=== PATIENT | female | born 1945 | race Caucasian/White ===

== ENCOUNTER 2017-07-08 21:50 | Emergency (ER) | payer OTHER ==
[~2017-07-08] VITALS: Ht 170.2 cm; Wt 63.5 kg
[2017-07-09] MEDS ORDERED: ONDANSETRON HCL 4 MG/2 ML VIAL IV ONE (02:30)
[2017-07-09] MEDS ORDERED: HYDROmorphone HCL 2 MG/ML VL IV ONE (02:30)
[2017-07-09] MEDS ORDERED: diphenhdrAMINE HCL 50 MG/1 ML VL ONE (02:46)
[2017-07-09] MEDS ORDERED: methylPREDNISolone SOD SUCC 125 MG/2 ML VL ONE (02:47)
[2017-07-09] MEDS ORDERED: NALOXONE HCL 1MG/ML 2ML SYRINGE ONE (02:47)
[2017-07-09] MEDS ORDERED: NALOXONE HCL 1MG/ML 2ML SYRINGE IV ONE (03:00)
[2017-07-09] MEDS ORDERED: diphenhdrAMINE HCL 50 MG/1 ML VL IV ONE (03:00)
[2017-07-09] MEDS ORDERED: methylPREDNISolone SOD SUCC 125 MG/2 ML VL IV ONE (03:00)
[2017-07-09 04:55] VITALS: BP 109/58
== END 2017-07-09 05:56 | disposition short-term general hospital (02) ==
LOC: EDBD 21:50 → ER 21:57
DX: S72.041A Displaced fracture of base of neck of right femur, initial encounter for closed fracture (principal); T50.905A Adverse effect of unspecified drugs, medicaments and biological substances, initial encounter; W01.0XXA Fall on same level from slipping, tripping and stumbling without subsequent striking against object, initial encounter; Y93.89 Activity, other specified; Y92.89 Other specified places as the place of occurrence of the external cause; Y99.8 Other external cause status
CPT/HCPCS: 73502; 93005; 96374; 96375; 99285; J1170; J1200; J2310; J2405; J2930

== ENCOUNTER 2019-11-16 17:25 | Inpatient (IN) | payer OTHER ==
[~2019-11-16] VITALS: Ht 167.6 cm; Wt 59.9 kg
[2019-11-16 18:55] LABS: Basophils # (auto) 0.1 10 ^3/uL (0-0.2); Basophils % (auto) 0.5 % (0.0-2.0); Eosinophils # (auto) 0 10 ^3/uL (0-0.8); Eosinophils % (auto) 0.3 % (0.0-7.0); Hematocrit 50.3 % (36.0-46.0); Lymphocytes # (auto) 1.4 10 ^3/uL (0.4-5.4); Lymphocytes % (auto) 10.4 % (10.0-50.0); Mean Corpuscular Hemoglobin 27.2 pg (28.0-32.0); Mean Corpuscular Hgb Conc. 31.8 g/dL (32.0-36.0); Mean Corpuscular Volume 85.7 fL (80.0-100.0); Monocytes # (auto) 0.9 10 ^3/uL (0-1.3); Monocytes % (auto) 6.9 % (0.0-12.0); Neutrophils # (auto) 10.7 10 ^3/uL (1.6-8.6); Neutrophils % (auto) 81.9 % (37.0-80.0); Nucleated Red Blood Cells % 0.4 %; Platelet Count (auto) 174 10^3/uL (140-450); Red Blood Cells 5.87 10^6/uL (4.0-5.20); Red Cell Distribution Width 18.6 % (11.8-14.3)
[2019-11-16 18:59] LABS: Urine Bacteria FEW /hpf (None Seen); Urine Blood Negative /uL (Negative); Urine Hyaline Cast MANY /lpf (0 - 2); Urine Mucus FEW (None Seen); Urine Specific Gravity 1.019 (1.001-1.035); Urine WBC 3 /hpf (0 - 5)
[2019-11-16 19:04] LABS: INR 1.22 (0.9-1.15); Partial Thromboplastin Time 32.8 sec (23.64-32.05)
[2019-11-16 19:14] LABS: Albumin 2.2 g/dL (3.4-5.0); Anion Gap 6 (5-15); Blood Urea Nitrogen 54 mg/dL (7-18); Carbon Dioxide 28 mmol/L (21-32); Chloride 101 mmol/L (98-107); Glucose 90 mg/dL (74-106); Potassium 4.7 mmol/L (3.5-5.1); Sodium 135 mmol/L (136-145)
[2019-11-16 19:21] LABS: Alanine Aminotransferase 15 U/L (13-56); Alkaline Phosphatase 97 U/L (45-117); Aspartate Aminotransferase 11 U/L (15-37); BUN/Creatinine Ratio 50.5; Bilirubin, Total 1.2 mg/dL (0.2-1.0); Blood Alcohol < 3.0 mg/dL (0-5); GFR African American 65 mL/min; GFR Non-African American 53 mL/min; Total Protein 5.7 g/dL (6.4-8.2)
[2019-11-16] MEDS ORDERED: FUROSEMIDE 40 MG/4 ML VIAL IV ONE (21:00)
[2019-11-16] MEDS ORDERED: cefTRIAXone 1GM/50ML D5W 50 ML IV ONE (21:00)
[2019-11-16] MEDS ORDERED: AZITHROMYCIN 500MG/ 250ML 250 ML IV ONE (21:00)
[2019-11-17] MEDS ORDERED: ACETAMINOPHEN 325 MG TAB PO PRN (06:30)
[2019-11-17] MEDS ORDERED: NITROGLYCERIN 0.4 MG SL TAB SL PRN (06:30)
[2019-11-17] MEDS ORDERED: MORPHINE SULF INJ 2 MG/ML SYRINGE 1ML IV PRN (06:30)
[2019-11-17] MEDS ORDERED: TEMAZEPAM 15 MG CAP PO PRN (06:30)
[2019-11-17] MEDS ORDERED: ONDANSETRON HCL 4 MG/2 ML VIAL IV PRN (06:30)
[2019-11-17] MEDS ORDERED: FUROSEMIDE 20 MG/2 ML VIAL IV SCH (06:53)
[2019-11-17] MEDS: LEVOTHYROXINE SODIUM 25 MCG TAB PO SCH (07:00)
[2019-11-17] MEDS: PANTOPRAZOLE 40 MG TAB PO SCH (10:00)
[2019-11-17] MEDS: METOPROLOL TARTRATE 25 MG TAB PO SCH ×2 (10:00→21:38)
[2019-11-17] MEDS: ASPirin 81 mg TAB PO SCH (10:00)
[2019-11-17] MEDS: LOSARTAN POTASSIUM 25 MG TAB PO SCH (10:00)
[2019-11-17] MEDS ORDERED: levoFLOXacin 500MG 100 ML IV SCH (10:00)
[2019-11-17] MEDS ORDERED: AZITHROMYCIN 500MG/ 250ML 250 ML IV ONE (12:30)
[2019-11-17] MEDS ORDERED: LOSA-39 PO (16:46)
[2019-11-17] MEDS ORDERED: MET25T PO (16:46)
[2019-11-17] MEDS ORDERED: LEVO75TA6 PO (16:46)
[2019-11-17] MEDS ORDERED: BUPR1TAB11 PO (16:46)
[2019-11-17] MEDS ORDERED: SIMV10TA84 PO (16:46)
--- NOTE | 2019-11-17 17:17 | NUR ---
Telemetry admit from ER ESTHELA AGARWAL admitted to Telemetry unit after SBAR received. Patient oriented to LEO, primary RN, unit, room and bed. Turner catheter hung to gravity and draining yellow hazy urine. LW and RW IV patent and locked. Patient now on continuous telemetry monitoring, tele box #84 and telemetry reading on arrival to unit is SINUS RHYTHM 66BPM. Patient placed on bedside oxygen, weighed by bedscale and encouraged to call if they need something. Patient alert to self only and unable to verbalize understanding. Bed alarm on for safety, call light within reach.
--- NOTE | 2019-11-17 17:22 | NUR ---
Swallow Eval Guest Service Supervisor at bed side assessing patient
--- NOTE | 2019-11-17 17:32 | NUR ---
SWALLOW EVALUATED. PATIENT VERY WEAK AND ALOC. PATIENT HAS NO TEETH, NO DENTURES PRESENT. ABLE TO FOLLOW ONE STEP COMMANDS. PATIENT COUGHED ON TRIAL OF THIN LIQUIDS. PATIENT ABLE TO TOLERATE PUREE DIET TEXTURE WITH NECTAR THICKENED LIQUIDS WITH NO OVERT SIGNS OR SYMPTOMS OF ASPIRATION. NURSING NOTIFIED.
[2019-11-17] MEDS ORDERED: LABETALOL HCL 5 MG/ML 4ML SYRINGE IV PRN (18:00)
[2019-11-17] MEDS: FUROSEMIDE 40 MG/4 ML VIAL IV SCH (18:00)
[2019-11-17] MEDS ORDERED: ASPI-498 PO (18:59)
[2019-11-17] MEDS ORDERED: CHOL500023 PO (18:59)
--- NOTE | 2019-11-17 19:00 | NUR ---
PATIENT IS AO X1. DOES NOT ANSWER ANY QUESTIONS EXCEPT FOR WHAT HER NAME IS OTHER THAN THAT SHE MOANS IF ASKED ANYTHING ELSE. BREATHING IS REGULAR ON 2LNC. BED IS LOCKED IN LOWEST SETTING WITH SIDE RAILS UP X2. WILL CONTINUE TO MONITOR.
[2019-11-17] MEDS: ATORVASTATIN 20 MG TAB PO SCH (21:38)
[2019-11-17 22:00] VITALS: BP 106/51
[2019-11-18] VITALS (10 sets, daily range): BP systolic 74–106; BP diastolic 48–64
--- NOTE | 2019-11-18 04:37 | NUR ---
Paged hospitalist for hypotension lowest of 74/52 and highest of 93/53 and heart of 75. Awaiting callback.
[2019-11-18] MEDS ORDERED: ALBUMIN 5% 250 ML IV STA (05:05)
[2019-11-18] MEDS: FUROSEMIDE 40 MG/4 ML VIAL IV SCH ×2 (06:00→18:24)
[2019-11-18] MEDS: LEVOTHYROXINE SODIUM 25 MCG TAB PO SCH (06:35)
[2019-11-18 06:54] LABS: Basophils # (auto) 0 10 ^3/uL (0-0.2); Basophils % (auto) 0.3 % (0.0-2.0); Eosinophils # (auto) 0 10 ^3/uL (0-0.8); Eosinophils % (auto) 0.4 % (0.0-7.0); Hematocrit 48.4 % (36.0-46.0); Hemoglobin 15.7 g/dL (12.2-16.2); Lymphocytes # (auto) 0.9 10 ^3/uL (0.4-5.4); Lymphocytes % (auto) 8.7 % (10.0-50.0); Mean Corpuscular Hemoglobin 27.9 pg (28.0-32.0); Mean Corpuscular Hgb Conc. 32.5 g/dL (32.0-36.0); Mean Corpuscular Volume 85.7 fL (80.0-100.0); Monocytes # (auto) 0.7 10 ^3/uL (0-1.3); Monocytes % (auto) 6.9 % (0.0-12.0); Neutrophils % (auto) 83.7 % (37.0-80.0); Nucleated Red Blood Cells % 0.6 %; Platelet Count (auto) 151 10^3/uL (140-450); Red Blood Cells 5.65 10^6/uL (4.0-5.20); Red Cell Distribution Width 18.3 % (11.8-14.3); White Blood Cell 10.8 10^3/uL (4.4-10.8)
[2019-11-18 07:05] LABS: Albumin 2.1 g/dL (3.4-5.0); Calcium 7.9 mg/dL (8.5-10.1); Potassium 3.4 mmol/L (3.5-5.1)
[2019-11-18 07:10] LABS: BUN/Creatinine Ratio 58.4; Bilirubin, Total 0.9 mg/dL (0.2-1.0); Total Protein 5.2 g/dL (6.4-8.2)
--- NOTE | 2019-11-18 07:29 | NUR ---
PT AROUSABLE BY NAME, UNABLE TO ANSWER QUESTIONS, NO SOB OR DISTRESS. SAFETY PRECAUTIONS IN PLACE. WILL CONTINUE TO MONITOR.
[2019-11-18] MEDS ORDERED: POTASSIUM CHL 20MEQ/100ML 100 ML IV ONE (08:30)
[2019-11-18] MEDS: cefTRIAXone 1GM/50ML D5W 50 ML IV SCH (08:45)
[2019-11-18] MEDS: LOSARTAN POTASSIUM 25 MG TAB PO SCH (09:29)
[2019-11-18] MEDS: METOPROLOL TARTRATE 25 MG TAB PO SCH ×2 (09:29→22:00)
[2019-11-18] MEDS: PANTOPRAZOLE 40 MG TAB PO SCH (09:47)
[2019-11-18] MEDS: ASPirin 81 mg TAB PO SCH (09:47)
--- NOTE | 2019-11-18 10:00 | NUR ---
GRICEL Davis at bed side assessing patient. No new orders received.
--- NOTE | 2019-11-18 10:18 | NUR ---
Call to POA/daughter Rosalina to clarify CODE STATUS Per Rosalina, patient does have a current advance directive which has some modifications of life sustaining measures. Rosalina asked to bring in copies of documents to update code status and informed that patient is to remain FULL CODE until documents brought in. Rosalina verbalized understanding.
--- NOTE | 2019-11-18 10:20 | NUR ---
Dr. Eugenio Monique at bedside. New orders received and verified. Will implement.
--- NOTE | 2019-11-18 10:34 | NUR ---
Patient off unit for head CT order
--- NOTE | 2019-11-18 11:27 | NUR ---
Call from Dr. Hung to inform of abnormal CT results. Refer to report. Will notify MD Monique for new orders.
--- NOTE | 2019-11-18 11:40 | NUR ---
MD Monique made aware of CT results. New orders in place. Will continue to monitor.
[2019-11-18] MEDS: AZITHROMYCIN 500MG/ 250ML 250 ML IV SCH (12:00)
[2019-11-18] MEDS ORDERED: OPTISON 3ml Vial for INJ IV ONE (12:10)
[2019-11-18] MEDS ORDERED: ALBUMIN 5% 250 ML IV ONE (14:00)
--- NOTE | 2019-11-18 14:30 | NUR ---
Patient off unit for head MRI order
--- NOTE | 2019-11-18 16:48 | NUR ---
WOUND CARE NOTE: Wound care in to see per wound care request regarding low Edison score of 11, putting patient to high risk for skin breakdown. Patient is 74 years old female with admitting diagnosis of Acute on chronic CHF. Patient is resting in bed in Rm. 279A. Patient is awake, eyes closed, respond to verbal and tactile stimuli, answers short reply like "Yes". Patient appears to be in no pain using Thorpe Aguirre Faces Pain Scale. Skin assessment done with the assistance of patient's nurse, DARY Vogel. No open wound noted, no pressure injury noted. Patient is incontinent of bowel and passed minimal amount of soft stool. Staff initiated skin protection measures with BID/PRN cleaning and application of Barrier to sacral, buttocks as preventative. Patient tolerated well, DARY Vogel and nurse executive chef assistant at bedside. RECOMMENDATION: Nursing to continue with BID/PRN cleaning and application of Barrier cream to sacral, buttocks as preventative,Dietary consult for low Edison score, frequent turning and repositioning schedule as condition permits, redistribute pressure points with pillows, elevate heels on pillows, continue monitoring by wound care while patient is has Edison score <18 Addendum: 11/18/19 at 1757 by Cheyenne Bryant RN Amended: Links added.
--- NOTE | 2019-11-18 18:04 | NUR ---
POA Patients daughter in to bring notarized POA/life sustaining wishes. Copy in chart.
--- NOTE | 2019-11-18 19:11 | NUR ---
Neuro Consult Spoke to Dr. Villa briefly in regards on patients status/imaging. Per patients daughter and POA requested MD Villa to make a call to [facility] at [phone] to update on latest head imaging results.
[2019-11-18 20:46] LABS: Cholesterol 84 mg/dL (< 200); Triglycerides 101 mg/dL (< 150)
[2019-11-18 20:49] LABS: HDL Cholesterol 28 mg/dL (40-59); LDL Cholesterol 48 mg/dL (< 100)
--- NOTE | 2019-11-18 21:55 | NUR ---
HEART RATE MANIFESTED 155;PT ASYMPTOMATIC WITH B/P OF 67/64;RESP93% ON 2 LITERS; TWELVE LEAD COMPLETE; PT NOW MANIFESTING HEART RATE OF SINUS RHYTHM WOTH LEFT BUNDLE BRANCH BLOCK. WILL INFORM .
[2019-11-18 23:03] LABS: Folate (Folic Acid) 14.4 ng/mL (5.38-24)
[2019-11-18] MEDS: ATORVASTATIN 20 MG TAB PO SCH (23:07)
[2019-11-18] MEDS: ASPIRIN-DIPYRIDAMOLE (25/200MG) CAPSULE PO SCH (23:07)
--- NOTE | 2019-11-18 23:28 | NUR ---
PT TURNED AND REPOSITIONED.
--- NOTE | 2019-11-19 03:00 | NUR ---
PT HAD LARGE FORMED STOOL IN BED. LINEN CHANGE WITH [facility] CARE AND NEW GOWN. PULLED UP. DENIES PAIN. CALL LIGHT IN REACH.
[2019-11-19 05:00] VITALS: BP 108/67
--- NOTE | 2019-11-19 05:00 | NUR ---
PT TURNED AND REPOSITIONED.
[2019-11-19] MEDS: FUROSEMIDE 40 MG/4 ML VIAL IV SCH ×2 (06:18→18:55)
[2019-11-19] MEDS: LEVOTHYROXINE SODIUM 25 MCG TAB PO SCH (06:19)
[2019-11-19 08:00] VITALS: BP 102/65
[2019-11-19] MEDS: cefTRIAXone 1GM/50ML D5W 50 ML IV SCH (08:56)
[2019-11-19 09:00] VITALS: BP 102/65
[2019-11-19] MEDS: ASPIRIN-DIPYRIDAMOLE (25/200MG) CAPSULE PO SCH ×2 (10:00→21:24)
[2019-11-19] MEDS: LOSARTAN POTASSIUM 25 MG TAB PO SCH (10:18)
[2019-11-19] MEDS: PANTOPRAZOLE 40 MG TAB PO SCH (10:18)
[2019-11-19] MEDS: METOPROLOL TARTRATE 25 MG TAB PO SCH ×2 (10:18→21:36)
[2019-11-19] MEDS: AZITHROMYCIN 500MG/ 250ML 250 ML IV SCH (12:41)
[2019-11-19 13:00] VITALS: BP_SYST 62
[2019-11-19 16:00] VITALS: BP 110/73
--- NOTE | 2019-11-19 20:00 | NUR ---
Opening Shift Note Assumed care of patient, awake and alert with period of confusion. No S/S of distress/SOB or pain. Instructed on POC and to call for assist PRN, will continue to monitor for changes Q1hr and PRN.
[2019-11-19] MEDS: ATORVASTATIN 20 MG TAB PO SCH (21:24)
[2019-11-19 22:00] VITALS: BP 144/66
[2019-11-20 05:00] VITALS: BP 138/74
[2019-11-20] MEDS: FUROSEMIDE 40 MG/4 ML VIAL IV SCH ×2 (05:17→18:54)
--- NOTE | 2019-11-20 05:50 | NUR ---
Tele cafeteria monitor. called patient has spike episode of SVT 150, and back to SR 84instantly, checked patient by R.n patient is sleeping no symptoms noted.
[2019-11-20] MEDS: LEVOTHYROXINE SODIUM 25 MCG TAB PO SCH (06:11)
--- NOTE | 2019-11-20 07:24 | NUR ---
Report given to Terry Erazo, patient is resting no distress, patient repositioned every 2 hours since last night.
--- NOTE | 2019-11-20 07:30 | NUR ---
Opening Shift Note Assumed care of patient, asleep but arousable with name call, periods of confusion noted. No S/S of distress/SOB or pain. Instructed on POC and to call for assist PRN, will continue to monitor for changes Q1hr and PRN.
[2019-11-20 08:00] VITALS: BP 91/68
[2019-11-20] MEDS: cefTRIAXone 1GM/50ML D5W 50 ML IV SCH (08:35)
[2019-11-20 09:00] VITALS: BP 87/59
[2019-11-20] MEDS: PANTOPRAZOLE 40 MG TAB PO SCH (09:04)
[2019-11-20] MEDS: ASPIRIN-DIPYRIDAMOLE (25/200MG) CAPSULE PO SCH ×2 (09:06→21:27)
[2019-11-20] MEDS: METOPROLOL TARTRATE 25 MG TAB PO SCH ×2 (09:06→21:28)
[2019-11-20] MEDS: LOSARTAN POTASSIUM 25 MG TAB PO SCH (09:06)
--- NOTE | 2019-11-20 10:22 | NUR ---
DR. Shikha KARIMI AT BEDSIDE, DISCUSSED PLAN OF CARE MD ALSO CALLED DAUGHTER TO DISCUSS CARE AND PENDING UPDATES.
--- NOTE | 2019-11-20 12:38 | NUR ---
Nutrition Assessment Notes Please refer to link for full assessment notes. Est Energy needs: 4877-9651 kcals (30-35 kcal/kgBW) Est Protein needs: 72-88 gms/day (1.12-1.37 gm/kgBW) Will continue to monitor and reassess prn. Addendum: 11/20/19 at [address] Amended: Links added.
[2019-11-20] MEDS: AZITHROMYCIN 500MG/ 250ML 250 ML IV SCH (12:46)
[2019-11-20 13:00] VITALS: BP 71/46
--- NOTE | 2019-11-20 16:21 | NUR ---
PATIENT IS CURRENTLY OFF UNIT FOR CT. WILL RESUME CARE UPON RETURN TO UNIT
[2019-11-20 17:19] VITALS: BP 94/55
--- NOTE | 2019-11-20 18:57 | NUR ---
IV INSERTED: 22G ON LEFT HAND PREVIOUS IV INFILTRATED
--- NOTE | 2019-11-20 20:00 | NUR ---
Opening Shift Note Assumed care of patient, more on sleeping,awakened . No S/S of distress/SOB or pain. Instructed on POC and to call for assist PRN, will continue to monitor for changes Q1hr and PRN.Had brownish to reddish bowel movement, keep clean and dry and repositioned.
[2019-11-20] MEDS: ATORVASTATIN 20 MG TAB PO SCH (21:28)
[2019-11-20 22:00] VITALS: BP 91/55
--- NOTE | 2019-11-20 22:00 | NUR ---
Relayed to Janine Garcia that patient had stool with brownish to reddish color with order to hold anticoagulant med.,CBC, type and screen and stool for occult blood..
[2019-11-20 22:55] LABS: Basophils # (auto) 0.1 10 ^3/uL (0-0.2); Basophils % (auto) 0.9 % (0.0-2.0); Eosinophils # (auto) 0.2 10 ^3/uL (0-0.8); Eosinophils % (auto) 2.1 % (0.0-7.0); Lymphocytes # (auto) 1.3 10 ^3/uL (0.4-5.4); Lymphocytes % (auto) 12.3 % (10.0-50.0); Mean Corpuscular Hemoglobin 27.3 pg (28.0-32.0); Mean Corpuscular Hgb Conc. 31.9 g/dL (32.0-36.0); Mean Corpuscular Volume 85.5 fL (80.0-100.0); Monocytes % (auto) 9.2 % (0.0-12.0); Neutrophils # (auto) 8.2 10 ^3/uL (1.6-8.6); Neutrophils % (auto) 75.5 % (37.0-80.0); Nucleated Red Blood Cells % 0.3 %; Platelet Count (auto) 168 10^3/uL (140-450); Red Blood Cells 5.85 10^6/uL (4.0-5.20); White Blood Cell 10.8 10^3/uL (4.4-10.8)
[2019-11-21 05:00] VITALS: BP 90/56
[2019-11-21] MEDS: FUROSEMIDE 40 MG/4 ML VIAL IV SCH ×2 (05:43→18:26)
[2019-11-21] MEDS: LEVOTHYROXINE SODIUM 25 MCG TAB PO SCH (06:01)
--- NOTE | 2019-11-21 07:22 | NUR ---
Report given to Devon Garza, patient is resting no distress.
--- NOTE | 2019-11-21 07:50 | NUR ---
Opening Shift Note Assumed care of patient. No S/S of distress/SOB or pain. Instructed on POC and to call for assist PRN, will continue to monitor for changes Q1hr and PRN. Bed locked in lowest position with two side rails up and call light in reach.
[2019-11-21 08:00] VITALS: BP 85/51
[2019-11-21 09:00] VITALS: BP 85/51
[2019-11-21] MEDS: ASPIRIN-DIPYRIDAMOLE (25/200MG) CAPSULE PO SCH ×2 (10:00→23:14)
[2019-11-21] MEDS: METOPROLOL TARTRATE 25 MG TAB PO SCH (10:00)
--- NOTE | 2019-11-21 11:20 | NUR ---
ELECTROENCEPHALOGRAM EEG COMPLETED AT BEDSIDE. PRIMARY RN CHELLY SYED.
[2019-11-21] MEDS: cefTRIAXone 1GM/50ML D5W 50 ML IV SCH (11:54)
[2019-11-21] MEDS: PANTOPRAZOLE 40 MG TAB PO SCH (11:55)
[2019-11-21 13:00] VITALS: BP 95/69
[2019-11-21] MEDS: AZITHROMYCIN 500MG/ 250ML 250 ML IV SCH (13:29)
--- NOTE | 2019-11-21 13:55 | NUR ---
1350 11/21/19 I faxed transfer order and Notice Regarding Post Stabilization to [facility]-document scanned into [employer]. I faxed today's transfer summary, labs, vitals and medication list to [facility].
--- NOTE | 2019-11-21 14:00 | NUR ---
PT DECLINED P.T. BECAUSE OF PENDING DISCHARGE.
[2019-11-21 17:00] VITALS: BP 94/57
--- NOTE | 2019-11-21 18:12 | NUR ---
173 11/21/19 I spoke with [facility] [employer] Network Architect Charo-she did receive the transfer order and today's clinical information-she is aware that the patient's daughter does not want her transferred to [facility]-inpatient authorization is extended until 11/22/19 1000.
[2019-11-21 18:25] LABS: Magnesium 1.3 mg/dL (1.6-2.6)
[2019-11-21 18:45] LABS: Potassium 2.8 mmol/L (3.5-5.1)
--- NOTE | 2019-11-21 18:45 | NUR ---
RECEIVED A CALL FROM MALDONAD[facility] STEVENS, PER RODNEY PATIENT HAS A CRITICAL POTASSIUM OF 2.8 PERIOPERATIVE NURSE HOSPITALIST PAGED (BRY[facility] WING)
--- NOTE | 2019-11-21 18:47 | NUR ---
RECEIVED A CALL FROM [employer] SUPERVISOR, SHE IS GOING TO CONTACT FAMILY MEMBER JEAN PAUL DAUGHTER IS REQUESTING FOR PATIENT TO STAY HERE. I WILL WAIT FOR RETURN CALL.
--- NOTE | 2019-11-21 18:51 | NUR ---
RECEIVED A CALL FROM BRY[facility] WING ORDERS RECEIVED, WILL IMPLEMENT.
[2019-11-21] MEDS ORDERED: POTASSIUM EFFERVESENT TAB 25 MEQ PO ONE (19:00)
--- NOTE | 2019-11-21 19:00 | NUR ---
Opening Shift Note Assumed care of patient, awake, confused. No S/S of distress/SOB or pain. Will continue to monitor for changes Q1hr and PRN.
[2019-11-21 22:00] VITALS: BP 93/57
[2019-11-21] MEDS: CARVEDILOL 3.125 MG TAB PO SCH (22:00)
[2019-11-21] MEDS: SACUBITRIL-VALSARTAN 24mg/26mg TAB PO SCH (23:14)
[2019-11-21] MEDS: ATORVASTATIN 20 MG TAB PO SCH (23:14)
[2019-11-22 05:00] VITALS: BP 87/55
[2019-11-22] MEDS: FUROSEMIDE 40 MG/4 ML VIAL IV SCH ×2 (06:00→18:39)
[2019-11-22] MEDS: LEVOTHYROXINE SODIUM 25 MCG TAB PO SCH (06:22)
[2019-11-22 06:55] LABS: Calcium 7.5 mg/dL (8.5-10.1); Magnesium 1.5 mg/dL (1.6-2.6)
[2019-11-22 07:29] LABS: Potassium 2.8 mmol/L (3.5-5.1)
--- NOTE | 2019-11-22 07:29 | NUR ---
RECEIVED CALL FROM MALDONADO HIGH. CRITICAL POTASSIUM LEVEL 2.8 DR KARIMI AT NURSING STATION, CRITICAL LAB OF K 2.8 REPORTED. NEW ORDERS RECEIVED, WILL IMPLEMENT.
[2019-11-22 08:00] VITALS: BP 96/63
[2019-11-22] MEDS ORDERED: LOSARTAN POTASSIUM 25 MG TAB PO SCH (08:00)
[2019-11-22] MEDS: cefTRIAXone 1GM/50ML D5W 50 ML IV SCH (08:11)
[2019-11-22] MEDS ORDERED: POTASSIUM CHLORIDE 40 MEQ, LIDOCAINE 1% (LOCAL ANESTH.) 4 ML in SODIUM CHL 0.9% 100 ML IV ONE (08:15)
[2019-11-22] MEDS ORDERED: MAGNESIUM SULFATE 1GM/100ML 100 ML IV ONE (08:30)
[2019-11-22 09:00] VITALS: BP_SYST 130; BP_SYST 96; BP_DIAS 63; BP_DIAS 70
[2019-11-22] MEDS: SACUBITRIL-VALSARTAN 24mg/26mg TAB PO SCH (10:00)
[2019-11-22] MEDS: CARVEDILOL 3.125 MG TAB PO SCH (10:00)
[2019-11-22] MEDS: PANTOPRAZOLE 40 MG TAB PO SCH (10:54)
[2019-11-22] MEDS: ASPIRIN-DIPYRIDAMOLE (25/200MG) CAPSULE PO SCH (10:55)
[2019-11-22 12:44] VITALS: BP 77/50
[2019-11-22 13:00] VITALS: BP 123/68
[2019-11-22] MEDS: AZITHROMYCIN 500MG/ 250ML 250 ML IV SCH (14:11)
--- NOTE | 2019-11-22 14:18 | NUR ---
CALLED PIOTR GARCIA FOR AN UPDATE ON PATIENT HOSPICE DISCHARGE. PER PIOTR SHE WILL MAKE CALLS, SHE WAS UNAWARE OF THE DISCHARGE HOME WITH HOSPICE. WILL AWAIT CALL BACK.
--- NOTE | 2019-11-22 14:24 | NUR ---
assessment Patient is a 74 year old female. Per patients daughter and POA prior to admission patient lived home with her caregiver and functioned with her assistance. Patient has a hospital bed, tyrone lift, wheelchair, and fww for home use. I informed Coty of patients ss consult for hospice evaluation and informed her that patient is now discharged. I offered Coty a list of medicare providers and per Coty she wants [facility] that Dr Monique suggested. order has been sent to [facility]. Per Ana M at [place] she will meet with daughter at 3pm today to sign consents. Transportation will be set up after meeting. Waiting on ETA of transport now. Addendum: 11/22/19 at 1430 by Bell BAIRES Amended: Links added.
--- NOTE | 2019-11-22 17:21 | NUR ---
RECEIVED A CALL FROM [facility], PATIENT IS SUPPOSED TO PICKED UP BETWEEN 7-8 PM .
--- NOTE | 2019-11-22 17:23 | NUR ---
[facility] [phone]
--- NOTE | 2019-11-22 17:34 | NUR ---
re-assessment Per Romana from [facility] all consents are signed and equipment has been delivered. [facility] will transport patient home between 7pm and 8pm tonight post discharge. Patients daughter Coty has been notified and agrees to discharge plan home on hospice. Addendum: 11/22/19 at 1736 by Bell BAIRES Amended: Links added.
[2019-11-22] MEDS ORDERED: POTASSIUM CHL 20 Meq TABLET PO SCH (18:00)
--- NOTE | 2019-11-22 19:00 | NUR ---
Opening Shift Note Assumed care of patient, awake and alert. No S/S of distress/SOB or pain. Instructed on POC and to call for assist PRN, will continue to monitor for changes Q1hr and PRN.
--- NOTE | 2019-11-22 22:00 | NUR ---
Discharge home with hospice Discharge instructions given as ordered. Encourage to follow up with PMD as instructed. All questions and concerns addressed. Patient verbalized understanding. Medication reconciliation form completed and copy given to patient. IV removed with catheter intact, pressure dressing applied. Pt will be discharged with the chowdhury in place, chowdhury catheter not removed. Telemetry unit returned to ICU. Patient picked up by [facility] with all personal belongings. No distress noted at time of departure.
[2019-11-23] MEDS ORDERED: AZITHROMYCIN 250 MG TAB PO SCH (10:00)
== END 2019-11-22 22:00 | disposition hospice, home (50) | DRG 871 ==
LOC: EDUNIT# 17:25 → ER 17:25 → EDSEX 17:25 → EDBD 17:25 → TELE 17:26 → TELE-WESTW 11-17 17:13
PROVIDERS: ADMIT Nurse Practitioner; ATTEND Family Medicine
DX: A41.9 Sepsis, unspecified organism (principal); I21.A1 Myocardial infarction type 2; I50.43 Acute on chronic combined systolic (congestive) and diastolic (congestive) heart failure; J18.9 Pneumonia, unspecified organism; I63.531 Cerebral infarction due to unspecified occlusion or stenosis of right posterior cerebral artery; G92 Toxic encephalopathy; E44.1 Mild protein-calorie malnutrition; N39.0 Urinary tract infection, site not specified; J44.1 Chronic obstructive pulmonary disease with (acute) exacerbation; J44.0 Chronic obstructive pulmonary disease with (acute) lower respiratory infection; G40.209 Localization-related (focal) (partial) symptomatic epilepsy and epileptic syndromes with complex partial seizures, not intractable, without status epilepticus; J20.9 Acute bronchitis, unspecified; R09.02 Hypoxemia; I11.0 Hypertensive heart disease with heart failure; E03.9 Hypothyroidism, unspecified; E78.00 Pure hypercholesterolemia, unspecified; I95.9 Hypotension, unspecified; E78.5 Hyperlipidemia, unspecified; E87.6 Hypokalemia; F17.200 Nicotine dependence, unspecified, uncomplicated; G62.9 Polyneuropathy, unspecified; Z20.828 Contact with and (suspected) exposure to other viral communicable diseases; H53.462 Homonymous bilateral field defects, left side; I65.23 Occlusion and stenosis of bilateral carotid arteries; Z79.899 Other long term (current) drug therapy; Z66 Do not resuscitate; Z68.22 Body mass index [BMI] 22.0-22.9, adult
CPT/HCPCS: 36415; 70450; 70551; 71045; 80048; 80053; 80061; 80320; 81001; 82607; 82728; 82746; 82962; 83036; 83605; 83615; 83735; 83880; 84132; 84443; 84484; 85025; 85610; 85730; 86850; 86900; 86901; 87040; 87070; 87086; 87804; 87880; 92610; 93005; 93306; 93886; 95819; 96365; 96366; 96367; 96368; 96375; 96376; 97110; 97530; 99291; G0378; J0696; J1956; J2001; J3480; Q9956